=== PATIENT | male | born 1965 | race Caucasian/White ===

== ENCOUNTER 2018-06-18 11:26 | Day surgery (SDC) | payer BC ==
[2018-06-12 10:32] VITALS: BMI 43.8
[~2018-06-18 11:26] MED LIST: SODIUM CHLORIDE 0.9% 1,000 ML IV SCH
[2018-06-18 12:15] VITALS: BP 138/76; PULSE 58; RESP 18; TEMP 98.2
--- NOTE | 2018-06-30 16:30 | P.PCN ---
Preoperative Diagnosis: Diagnosis Recurrent dizzy spells/presyncope Episodes associated with bradycardia with AV block Baseline telemetry ECG shows sinus rhythm normal [place] interval narrow QRS normal ST segments Tilt table test for protocol Baseline blood pressure 133/63 mmHg Baseline 156 beats a minute Patient was tilted upright at an angle of 30 per protocol There was no change in his heart rate blood pressure No symptoms noted Impression Normal twelve-lead ECG No evidence for neurocardiogenic syncope or a cardioinhibitory response Please note that patient has had recurrent episodes of situational syncope. In the hospital 1 episode associated with pain was associated with AV block, vagal response
== END 2018-06-18 15:25 | disposition home or self-care (01) ==
LOC: CATHEP 11:26
PROVIDERS: ATTEND Internal Medicine Clinical Cardiac Electrophysiology
DX: I44.30 Unspecified atrioventricular block (principal)
CPT/HCPCS: 93660

== ENCOUNTER 2020-10-23 12:04 | Day surgery (SDC) | payer BC ==
[2020-10-19 09:57] VITALS: BMI 43.4
[~2020-10-23 12:04] MED LIST changes: +DEXAMETHASONE SOD PHOSPHATE 4 MG/ML 1 ML VIAL IV ONE; +LIDOCAINE 1% (10MG/ML) FOR IV START INTRADERMA PRN; +METOCLOPRAMIDE 5 MG/ML 2 ML VIAL IVP PRN; +ONDANSETRON 4 MG/2 ML VIAL IVP ONE; -SODIUM CHLORIDE 0.9% 1,000 ML IV SCH
[2020-10-23] MEDS ORDERED: HEPARIN SODIUM,PORCINE 10,000 UNIT/ML 1 ML VIAL ONE (13:51)
[2020-10-23] MEDS ORDERED: GLYCOPYRROLATE 0.2 MG/ML 2 ML VIAL ONE (13:51)
[2020-10-23] MEDS ORDERED: ROCURONIUM 10 MG/ML (5 ML VIAL) IV ONE (13:51)
[2020-10-23] MEDS ORDERED: LIDOCAINE 1% INJ 10MG/ML (20 ML MDV) ONE ×2 (13:51→14:29)
[2020-10-23] MEDS ORDERED: MIDAZOLAM 2 MG/2 ML VIAL ONE (13:51)
[2020-10-23] MEDS ORDERED: PHENYLEPHRINE-0.9% NACL SYG 1,000 MCG/10 ML SYRINGE ONE (13:51)
[2020-10-23] MEDS ORDERED: SUCCINYLCHOLINE CHLORIDE VIAL 200 MG/10 ML VIAL IV ONE (13:51)
[2020-10-23] MEDS ORDERED: fentaNYL (PF) 50 MCG/ML 2 ML AMP ONE (13:51)
[2020-10-23] MEDS ORDERED: PROPOFOL 10 MG/ML 20 ML VIAL IV ONE (13:51)
[2020-10-23] MEDS ORDERED: NEOSTIGMINE 1 MG/ML 10 ML VIAL ONE (13:51)
[2020-10-23] MEDS ORDERED: PROTAMINE SULFATE 10 MG/ML 5 ML VIAL IV ONE (13:51)
[2020-10-23] MEDS ORDERED: SODIUM CHLORIDE 0.9% 950 ML IV ONE ×2 (14:13)
[2020-10-23] MEDS ORDERED: LIDOCAINE 1% INJ 10MG/ML (20 ML MDV) SQ ONE (14:41)
[2020-10-23] MEDS ORDERED: HEPARIN SOD,PORK IN 0.45% NACL 25,000 UNIT in 0.45% NACL 1 250ML.BAG IV ONE (14:43)
[2020-10-23] MEDS ORDERED: HEPARIN SODIUM (1,000 UNIT/ML) 1,000 UNIT in SODIUM CHLORIDE 0.9% 1,000 ML IRRIGATION ONE (17:17)
[2020-10-23] MEDS ORDERED: IOPAMIDOL-370 100ML BTL INJ ONE (17:17)
[2020-10-23] MEDS ORDERED: LIDOCAINE 2%-EPI 1:100,000 20 ML VIAL SQ ONE (17:27)
[2020-10-23] MEDS ORDERED: ACETAMINOPHEN IV (For NPO) 1,000 MG in EMPTY BAG 1 BAG IVPB ONE (18:05)
[2020-10-23] MEDS ORDERED: ACETAMINOPHEN TAB 325 MG TAB PO PRN (18:05)
--- NOTE | 2020-10-23 18:05 | P.EPPROC ---
- EP Procedure Note Electrophysiology Procedure Note: PROCEDURE A. fib ablation with PVI/linear ablation in the left atrial roof, linear ablation left atrial septum and focal ablation in the upper/posterior limbus of fossa ovalis with termination of atrial fibrillar DIAGNOSIS Paroxysmal Atrial fibrillation, symptomatic, refractory to therapy Rapid ventricular response Newly developed mild cardio myopathy RESULT No left atrial appendage mass seen on intracardiac echo Successful pulmonary vein isolation of all veins using cryo-ablation Complete entrance block in all 4 veins confirmed Linear ablation left atrial roof. Complete line of block made Linear ablation left atrial septum, posterior Focal ablation with termination of atrial fibrillation at the upper limbus of the fossa ovalis posteriorly No evidence for phrenic nerve injury Esophageal deflection YES PROCEDURE DETAILS Patient was brought to the EP lab in a fasting state. Written informed consent was obtained prior to the procedure. Procedure performed under general anesthesia After initial muscle relaxant use, muscle relaxants were not given thereafter in order to assess phrenic nerve during procedure. Patient prepped and draped as per protocol Full cryo-set up with standard preparation of the cryoablation tools done. Femoral Venous access obtained on the right and left groins Venous and arterial Sheaths placed. Diagnostic catheters for the high right atrium, phrenic nerve stimulation and pacing, His bundle, RV and coronary sinus placed Intracardiac echo catheter placed. Long sheath placed in the right atrium Left and right transseptal catheterization performed under intracardiac echo guidance. Intravenous heparin with aCT above 300 Later, catheter positioning and balloon positioning in the left atrium, under intracardiac echo guidance Diagnostic EP study with Coronary sinus pacing and recording Atrial pacing performed from the high right atrium and the coronary sinus Sinus recovery times at 600, 504 100 ms were 1323, 1344 and 1237 ms respectively AV node Wenckebach block 310 ms Baseline measurements QRS 104 ms AH 73 ms, HV interval 39 ms Transseptal catheterization performed RA pressure 23/15/19 LA pressure 37/14/27 Transseptal catheterization performed with standard sheath. The cryoablation sheath was then placed with an over the wire exchange without any acute complications. All 4 pulmonary veins were isolated in the following sequence: Left superior followed by left inferior followed by right superior followed by right inferior The cryo-ablation balloon was placed at the os of each vein 1.5 mL of IV dye was injected to confirm an occluded vein Goal during cryoablation was to achieve complete occlusion of the pulmonary vein, achieve -30 degrees C at 30 seconds and achieve -40 degrees C at 60 seconds and a time to effect of less than 60-90 seconds, . If not the balloon was repositioned to obtain this result After completion of Cryoblation with durations from 180-240 seconds, entrance block was confirmed with the Attain circular catheter in a roving fashion around the antrum of the pulmonary veins Phrenic nerve pacing was performed from the SVC, right innominate vein area and diaphragm voltage was monitored. Diaphragmatic contractions were also monitored manually for strength of contraction. Parameter goals for each cryo freeze Complete occlusion of the appropriate vein -30 degrees C by 30 seconds -40 degrees C by 60 seconds Minimum between minus 40-55 degrees C Thaw time greater than 10 seconds Balloon visualized by intracardiac echo The esophagus was intubated. Esophageal Temperature monitoring with a CIRCA catheter formed. Esophageal deflection for hypothermia of the esophagus below 30 degrees C Left superior pulmonary vein Complete isolation, entrance block Left inferior pulmonary vein Complete isolation, entrance block Right superior pulmonary vein, during phrenic nerve pacing Complete isolation, entrance block Right inferior pulmonary vein, during phrenic nerve pacing Complete isolation, entrance block At the end of the procedure the Achieve catheter was once again used to check for entrance block Phrenic nerve stimulation was performed to confirm diaphragmatic stimulation the end of the procedure Cine fluoroscopy was performed at the very end of the procedure to confirm movement of both diaphragms with inspiration and expiration RF ablation catheter placed in the left atrium Voltage mapping of the left atrium performed Pulmonary veins were completely isolated The In the left atrial roof was less than 2 cm Linear ablation performed in the left atrial roof and a complete line of block was made at good contact force and power up to 30 W Linear ablation performed in the posterior septum from the right superior vein to the right inferior vein Focal ablation in the upper posterior limbus of the fossa ovalis with successful termination of atrial fibrillation At the end of the procedure the patient was extubated Heparin was reversed Venous sheaths were removed and hemostasis assured PROCEDURES PERFORMED Diagnostic EP study CS pacing and recording Left and right transseptal catheterization 3D mapping) Intracardiac echocardiography Pulmonary vein isolation with transseptal and comprehensive EPS, [id number] Left atrial roof line, [id number] Linear ablation, posterior septum of left atrium, [id number] Focal ablation posterior-superior limbus of the fossa ovalis with termination of atrial fibrillation
[2020-10-23] MEDS: SODIUM CHLORIDE 0.9% 1,000 ML IV SCH (18:06)
[2020-10-23] MEDS: LACTATED RINGERS 1,000 ML IV SCH (18:06)
[2020-10-23] MEDS: APIXABAN 5 MG TAB PO SCH (20:35)
[2020-10-24 02:16] LABS: Chol/HDL Ratio 4.33; LDL Cholesterol,Calculated 105.4 mg/dL (0.0-131.0); VLDL Calculation 24.6 mg/dL (5.00-40.00)
[2020-10-24] MEDS: LACTATED RINGERS 1,000 ML IV SCH (05:03)
[2020-10-24] MEDS: SODIUM CHLORIDE 0.9% 1,000 ML IV SCH (05:03)
[2020-10-24 06:09] VITALS: RESP 16
[2020-10-24] MEDS: APIXABAN 5 MG TAB PO SCH (07:27)
--- NOTE | 2020-10-24 08:17 | DS ---
DISCHARGE SUMMARY Chris Ferrera has long paroxysms of atrial fibrillation (PAF). He developed tachycardia mediated cardiomyopathy. He finally agreed to proceed with an atrial fibrillation ablation. Previously, flecainide had not suppressed his atrial fibrillation adequately. He has also has a long post-conversion pauses and tachybrady syndrome. Yesterday, he underwent atrial fibrillation ablation which was successful in terminating atrial fibrillation. Intracardiac echo revealed a thickened posterior upper limbus of the fossa ovalis and RF ablation at this site resulted in immediate termination of atrial fibrillation. He also underwent pulmonary vein isolation successfully along with linear ablation of the left atrial roof and ablation of the posterior septum. He maintains in sinus rhythm today. EKG is normal. Blood pressure is in the normal range. He does not have hypertension. No JVD. He is resting comfortably in bed. No orthopnea. Heart sounds are normal. No rub. No gallop. Breath sounds are clear. No rhonchi, no crackles. Extremities are warm. No hematoma into the groins. IMPRESSION: 1. Paroxysmal atrial fibrillation and RVR. 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 4. Morbid obesity. 5. Obstructive sleep apnea, using CPAP mask. 6. High left atrial pressures with a dilated left atrium. Left atrial pressures are around 25 mmHg. PLAN: I had a detailed discussion with the patient about the procedure and that it was successful, but the left atrial pressures are extremely high. He does not have hypertension. If he is using his CPAP mask and if the CPAP mask pressures are adequately maintained, then the only reason I could find was morbid obesity. Intracardiac echo revealed that his LV function actually has improved with rate control and is now around 50-55%. I had a detailed discussion about weight loss and the importance of maintaining a normal body weight to reduce further cardiovascular events and improving outcomes of atrial fibrillation ablation. He understands this. I have also asked him to continue Eliquis. While his MARGARITA-VASc score is low, since he does have cardiomyopathy, I would like to continue Eliquis for about 4 to 6 months before stopping it. I have also sent his hemoglobin A1c, lipid panel and TSH again today. He will follow up with me in about a week to 10 days. He will continue to follow up with Dr. Cervantes. MMARIANEL / IJN: [id number] /
[2020-10-24 08:21] VITALS: BP 122/74; PULSE 74; TEMP 97.9
[2020-10-24 16:27] LABS: Hemoglobin A1C 6.1 % (4.0-6.0)
== END 2020-10-24 12:28 | disposition home or self-care (01) ==
LOC: CATHEP 12:04 → 6NMEDSUR 16:48 → CATHEP 10-24 12:28
PROVIDERS: ATTEND Internal Medicine Clinical Cardiac Electrophysiology
DX: I48.0 Paroxysmal atrial fibrillation (principal); I49.5 Sick sinus syndrome; R00.1 Bradycardia, unspecified; E66.01 Morbid (severe) obesity due to excess calories; Z68.41 Body mass index [BMI] 40.0-44.9, adult; G47.33 Obstructive sleep apnea (adult) (pediatric); I42.9 Cardiomyopathy, unspecified; Z91.030 Bee allergy status; Z79.01 Long term (current) use of anticoagulants; Z79.82 Long term (current) use of aspirin; Z79.899 Other long term (current) drug therapy
CPT/HCPCS: 93662; 93613; 93656; 93657; 80061; 84443; 83036; C1759; C1894 ×3; C1769 ×4; C1760; C1730 ×2; C1893; C1733; C1766; C1732; J2250; J0330; J2720; J1644 ×3; J2710; J2001; J3010; J0131; J2370; J2704; Q9967